=== PATIENT | male | born 1945 | race Caucasian/White ===

== ENCOUNTER → 2019-08-29 | Outpatient (CLI) | payer MEDICARE ==
[~2019-08-29] MED LIST: CONTRAST GIVEN. MC PRN; IOHEXOL 240 MG/ML 50ML VIAL. PO ONE
--- NOTE | 2019-08-29 13:20 | RAD ---
EXAM: Abdomen and pelvis CT without intravenous contrast. HISTORY: Weight loss and pain. TECHNIQUE: Computed tomographic images of the abdomen and pelvis were obtained without contrast. Multiplanar reformatting was performed. *One or more of the following individualized dose reduction techniques were utilized for this examination: 1. Automated exposure control. 2. Adjustment of the mA and/or kV according to patient size. 3. Use of iterative reconstruction technique. COMPARISON: None. FINDINGS: Evaluation of the lower thorax demonstrates emphysema. There is lingular atelectasis or scarring. The heart is normal in size. No hepatic lesion is seen. The culture surgically absent. The pancreas, spleen, adrenal glands and left kidney are unremarkable. There is a cyst within the lower pole of the right kidney measuring 2.2 cm. There is linear ossification within the upper mid zone of the right kidney which is likely vascular. There is no appendicitis. There is no bowel structure in. There is moderate colonic stool. There are few distal colonic diverticula. There is no evidence of diverticulitis. The bladder is unremarkable. There is calcified plaque involving the abdominal aorta. There is ectasia of the infrarenal abdominal aorta to a caliber of 2.7 cm. There is no suspicious osseous lesion. There is grade 1 anterolisthesis with pars defects at L5-S1. IMPRESSION: 1. No acute abdominal or pelvic finding. 2. Simple appearing right renal cyst and suspected renal vascular calcification. 3. Colonic diverticulosis. 4. Grade 1 anterolisthesis with pars defects at L5-S1. Electronically signed by: Lizet Cage MD (08/29/2019 1:18 PM) [facility]
== END | disposition home or self-care (01) ==
LOC: CT 10:32
PROVIDERS: ATTEND Family Medicine
DX: K57.30 Diverticulosis of large intestine without perforation or abscess without bleeding (principal); J43.9 Emphysema, unspecified; N28.1 Cyst of kidney, acquired; I70.8 Atherosclerosis of other arteries; M43.17 Spondylolisthesis, lumbosacral region
CPT/HCPCS: 74176

== ENCOUNTER → 2021-08-31 | Outpatient (CLI) | payer MEDICARE ==
--- NOTE | 2021-09-01 09:55 | RAD ---
EXAM: CT CHEST WITHOUT CONTRAST (LDCT LUNG CANCER SCREENING) 08/31/2021 HISTORY: 100 pack-year smoking history. TECHNIQUE: CT of the chest was performed without intravenous contrast using a low-dose lung screening protocol. Findings analysis is based on ACR Lung-RADS v1.1. One or more of the following individualized dose reduction techniques were utilized for this examinat ion: 1. Automated exposure control. 2. Adjustment of the mA and/or kV according to patient size. 3. Use of iterative reconstruction technique. COMPARISON: None. FINDINGS: Atherosclerotic calcification of the thoracic aorta and its branches is noted. The thoracic aorta is mildly tortuous but tapers normally. Extensive coronary artery calcifications are seen. The heart is normal in size. Calcified mediastinal and left hilar lymph nodes are seen. Small likely greg ctive hilar mediastinal lymph nodes are noted. No axillary lymphadenopathy is seen. Emphysematous changes are seen involving both lungs. Areas of scarring are seen involving the apices of both lungs. A 3 mm calcified granuloma is seen involving the anterior aspect of the left upper lob e. A 4 mm noncalcified nodule is seen involving the anterior aspect of the left upper lobe (image 161 o f series 2). Three additional small noncalcified nodules are seen involving the left upper lobe whic h measure 2 to 3 mm in size (images 83, 106 and 193). Areas of probable subsegmental atelectasis are seen involving the inferior medial right middle lobe a nd lingula. No additional pulmonary nodule is seen. No area of consolidation is noted. No pneumothora x or pleural effusion is seen. Images through the upper abdomen. Atherosclerotic calcification of the abdominal aorta is seen. Surgi miesha clips are seen within the gallbladder fossa. Degenerative changes are seen involving the thoracic spine. IMPRESSION/RECOMMENDATION: ACR Lung-RADS category: 3. Probably benign. Several small noncalcified nod ules are seen involving the left upper lobe. The largest measures 5 mm in greatest diameter. A repeat low-dose CT scan of the chest in 6 months is recommended to document their stability. Electronically signed by: Flako Castillo MD (09/01/2021 9:53 AM) [id number]
--- NOTE | 2021-09-01 10:25 | RAD ---
Exam: US DPLX ARTR EXTREM LOWER BILAT History: Claudication Comparison: None. Technique: Grayscale, color, and spectral Doppler ultrasound images of the lower extremity arteries. Findings: Peak systolic velocities (cm/s) and waveforms in the lower extremities: Right: Common femoral artery: 259, monophasic Profunda femoris artery: 194, monophasic Proximal superficial femoral artery: 60, monophasic Mid superficial femoral artery: 57, monophasic Distal superficial femoral artery: 46, now Popliteal artery: 84, monophasic Peroneal artery: Not visualized. Posterior tibial artery: 38 proximally, 36 distally, monophasic Dorsalis pedis artery: 15, monophasic Anterior tibial artery: 38, monophasic Left: Common femoral artery: 125, biphasic Profunda femoris artery: 46, biphasic Proximal superficial femoral artery: 122, biphasic Mid superficial femoral artery: 143, biphasic Distal superficial femoral artery: 104, biphasic Popliteal artery: 69, biphasic Peroneal artery: Not visualized Posterior tibial artery: 83 proximally and distally, biphasic Dorsalis pedis artery: 68, biphasic Anterior tibial artery: A 6, biphasic IMPRESSION: 1. Peripheral arterial disease in the right lower extremity with stenosis in the right common femoral artery and profunda femoris artery. Monophasic flow throughout the right lower extremity. 2. No evidence of stenosis in the left lower extremity arteries. Electronically signed by: Keisha Mancia MD (09/01/2021 10:23 AM) [id number]
== END ==
LOC: US 12:16
PROVIDERS: ATTEND Family Medicine
DX: I70.201 Unspecified atherosclerosis of native arteries of extremities, right leg (principal); R91.8 Other nonspecific abnormal finding of lung field; I70.0 Atherosclerosis of aorta; I25.10 Atherosclerotic heart disease of native coronary artery without angina pectoris; I89.8 Other specified noninfective disorders of lymphatic vessels and lymph nodes; J43.9 Emphysema, unspecified; J84.10 Pulmonary fibrosis, unspecified; J98.11 Atelectasis; M47.814 Spondylosis without myelopathy or radiculopathy, thoracic region; Z98.890 Other specified postprocedural states; F17.210 Nicotine dependence, cigarettes, uncomplicated
CPT/HCPCS: 71271; 93925

== ENCOUNTER 2021-09-06 07:49 | Outpatient (CLI) | payer MEDICARE ==
[2021-09-06] VITALS (10 sets, daily range): BP systolic 116–142; BP diastolic 65–82
[~2021-09-06] VITALS: Ht 180.3 cm; Wt 70.0 kg
[2021-09-06 08:30] LABS: BASO # 0.1 x10^3/uL (0.0-0.2); BASO % 1 % (0-3); EOS # 0.6 x10^3/uL (0.0-0.7); EOS % 10 % (0-3); HEMATOCRIT 46.2 % (39.0-53.0); LYMPH # 0.9 x10^3/uL (1.0-4.8); LYMPH % 15 % (24-48); MEAN CORPUSCULAR HEMOGLOBIN 28 pg (25-35); MEAN CORPUSCULAR HGB CONC 32 g/dL (31-37); MEAN CORPUSCULAR VOLUME 85 fL (79-100); MONO # 0.8 x10^3/uL (0.0-1.1); MONO % 13 % (0-9); NEUT # 3.8 x10^3/uL (1.8-7.7); NEUT % 61 % (31-73); PLATELET COUNT 225 x10^3/uL (140-400); RED BLOOD COUNT 5.44 x10^6/uL (4.30-5.70); RED CELL DISTRIBUTION WIDTH 15.9 % (11.5-14.5); WHITE BLOOD COUNT 6.3 x10^3/uL (4.0-11.0)
[2021-09-06 08:38] LABS: CALCIUM 8.9 mg/dL (8.5-10.1); CREATININE 0.8 mg/dL (0.7-1.3); POTASSIUM 4.4 mmol/L (3.5-5.1)
[2021-09-06 08:39] LABS: PROTHROMBIN TIME PATIENT 12.3 SEC (11.7-14.0)
[2021-09-06] MEDS ORDERED: METF500T16 PO (09:23)
[2021-09-06] MEDS ORDERED: IODIXANOL 320 MG/ML 100 ML VIAL. ONE (09:55)
[2021-09-06] MEDS ORDERED: HEPARIN for ARTERIAL LINE 1,500 ML ONE (09:56)
[2021-09-06] MEDS ORDERED: LIDOCAINE WITH 8.4% SOD BICARB 3 ML DISP.SYRIN. ONE (09:56)
[2021-09-06] MEDS ORDERED: MIDAZOLAM HCL/PF 2 MG/2 ML VIAL. ONE (10:13)
[2021-09-06] MEDS ORDERED: HEPARIN for IV BOLUS 10,000 UNIT/10 ML VIAL. ONE ×2 (10:13→11:07)
[2021-09-06] MEDS ORDERED: fentaNYL PF VIAL 100 MCG/2 ML VIAL ONE ×3 (10:13→12:47)
[2021-09-06] MEDS ORDERED: NITROGLYCERIN 4 MG/20 ML SYRINGE for CATH LAB. ONE ×2 (10:51→11:00)
[2021-09-06] MEDS ORDERED: NITROGLYCERIN 200 MCG/2 ML SYRINGE FOR CATH/VASC LAB. ONE (11:11)
[2021-09-06] MEDS ORDERED: fentaNYL PF VIAL 100 MCG/2 ML VIAL IV ONE (11:30)
[2021-09-06] MEDS ORDERED: HEPARIN for IV BOLUS 10,000 UNIT/10 ML VIAL. IV ONE (11:30)
[2021-09-06] MEDS ORDERED: MIDAZOLAM HCL/PF 2 MG/2 ML VIAL. IV ONE (11:30)
[2021-09-06] MEDS ORDERED: LIDOCAINE WITH 8.4% SOD BICARB 3 ML DISP.SYRIN. IJ ONE (11:30)
[2021-09-06] MEDS ORDERED: NITROGLYCERIN 200 MCG/2 ML SYRINGE FOR CATH/VASC LAB. IART ONE (11:30)
[2021-09-06] MEDS ORDERED: IODIXANOL 320 MG/ML 100 ML VIAL. IART ONE (11:30)
[2021-09-06] MEDS ORDERED: CLOPIDOGREL BISULFATE 75 MG TABLET ONE (14:45)
[2021-09-06] MEDS ORDERED: ASPIRIN CHEWABLE 81 MG TABLET. PO ONE (15:00)
[2021-09-06] MEDS ORDERED: CLOPIDOGREL BISULFATE 75 MG TABLET PO ONE (15:00)
[2021-09-06] MEDS ORDERED: ONDANSETRON PF 4 MG/2 ML VIAL. IVP PRN (15:15)
--- NOTE | 2021-09-06 15:19 | NUR ---
Plavix 75mg daily, Aspirin 81 mg daily called in to [facility] by RN as requested by RN. Patient's grandson notified of patient's status, RX needing to be picked up. States he will be staying with him this evening. Addendum: 09/06/21 at 1522 by CORY OBREGON RN requested by patient.
--- NOTE | 2021-09-06 16:01 | NUR ---
pt ambulated and tolerated PO. PIV dc'd. discharge instructions reviewed with patient. Pt home with family
[2021-09-07] MEDS ORDERED: CLOPIDOGREL BISULFATE 75 MG TABLET PO SCH (08:00)
--- NOTE | 2021-09-07 08:58 | RAD ---
Site ID: [id number] EXAMINATION: Ultrasound-guided puncture of the left MANAGER TALENT MANAGEMENT (CPT 34475) Catheter placement right MANAGER TALENT MANAGEMENT, ( [id number]-Duy/pop Aortogram (CPT 71529) and Pelvic angiogram-bilateral iliac-and right lower extremity run off ([id number] unilateral [id number] -bilate ral) Left external iliac artery angioplasty (07196) Femoropopliteal atherectomy and stent placement (04034) Moderate sedation (CPT fill) INDICATION: Patient complains of bilateral leg claudication preventing him from being fully active mo re on the right side. The patient however is capable of the walking short distances. No ulcers or res t pain. Flouroscopy-Radiation exposure: Kerma Air Product (in mGycm2): 202 Contrast: 90 mL Isovue-300. SEDATION: Under physician supervision, Versed and fentanyl were administered intravenously for moder ate sedation. Pulse oximetry, heart rate, and BP were continuously monitored by a dedicated qualifie d nurse. The physician spent 159 minutes of [id number] sedation time with the patient. Current history and physical and other medical records are reviewed prior to the procedure. CONSENT: Informed consent was obtained. The risks, benefits, potential complications and alternatives were reviewed and all questions answered. Estimated blood loss: 30 ml PROCEDURE: After maximal sterile barrier technique preparation and draping, 1% lidocaine was utilized for local anesthesia. Ultrasound demonstrates patent left MANAGER TALENT MANAGEMENT. This is deemed suitable for access and a ultrasound-guided puncture was performed utilizing a micropuncture kit. Live guidance is used and ultrasound image of good needle location is saved. A 6-Palestinian sheath is introduced. Subsequently a 5-Palestinian contra flush catheter is introduced advanced over a wire into the abdominal a savannah and the catheter is positioned at T12 level. DSA aortogram is performed. Then the catheter was repositioned to the distal abdominal aorta at the L4 level and pelvic angiogram in BARRERA and DUBOIS positi ons was performed. Subsequently the catheter was advanced over a wire into the right common femoral artery and a DSA l ower extremity runoff was performed. Please note that for evaluation of the catheter infrapopliteal vessels on the right side is selective injection with catheter placement in the right popliteal artery is a performed after crossing the oc clusion to obtain an diagnostic angiogram as the nonselective injection from the right common femoral artery position was nondiagnostic. Angiogram findings: * Abdominal aorta demonstrates no significant stenosis. There is however an aneurysm of the lower ab dominal aorta measuring approximately 4 cm. This appears to be larger compared to CT scan on the Dece mber 2018. * Pelvic angiogram: RIGHT: Common iliac: no significant stenosis Internal iliac: High-grade stenosis of the origin External iliac: no significant stenosis LEFT: Common iliac: no significant stenosis Internal iliac: no significant stenosis External iliac: 70 percent focal stenosis proximally * Left lower extremity: MANAGER TALENT MANAGEMENT: Calcified plaque with the 80 percent stenosis * Right lower extremity Angiogram: MANAGER TALENT MANAGEMENT: Large calcified plaque with 80 percent stenosis Profunda: no significant stenosis SFA: 7 cm segment of the chronic occlusion distally Popliteal: no significant stenosis AT: Proximal focal 80 percent stenosis Peroneal: no significant stenosis PT: no significant stenosis Intervention: The 6-Palestinian access sheath was exchanged over a wire with a long 6-Palestinian destination sheath with the tip positioned in the right external iliac artery. Subsequently successful careful crossing of the stenosis in the right common femoral artery was performed. Subsequently the catheter is placed in the mid SFA and the after a few maneuvers, successful crossing of the complete occlusion of the distal right SFA was performed. Injection distally demonstrated the true lumen position. Then catheter is placed in the popliteal artery and diagnostic angiogram of the infrapopliteal arteri es of the right side was performed to obtain the accurate assessment of the these vessels which demon strates focal significant stenosis in the anterior tibial artery. The peroneal and posterior tibial a rteries however appears patent. Subsequently CSI atherectomy was performed at the right common femoral artery. This is performed gent ly in order to minimize embolization. Subsequently 5 and 6 mm balloon angioplasty is performed with d rug coated balloon. Subsequently, angioplasty is performed at the distal right SFA lesion and follow-up angiogram demonst rate the remaining significant stenosis. This is followed by a placement of a 5.5 mm Supera stent whi ch is deployed successfully with the follow-up angiogram demonstrating good results. The subsequently attention is a switched into the left external iliac, artery stenosis. The sheath is pulled into the left external iliac artery and the 6 mm balloon angioplasty of the proximal left ext ernal iliac artery stenosis was performed with follow-up angiogram demonstrating good results. Following that the catheters and wires were withdrawn and the left MANAGER TALENT MANAGEMENT arteriotomy was closed utiliz ing Perclose closure device successfully achieving hemostasis. The patient tolerated the procedure well with no immediate complications. Impression: 1. Distal abdominal aortic aneurysm measuring approximately 4 cm in size. For more accurate sizing o f the aorta, a CTA follow-up of the abdomen and pelvis is recommended. 2. Complete occlusion in the distal right SFA successfully recanalized, requiring stent placement. 3. High-grade stenosis with calcified plaque at the right common femoral artery with significant impr ovement in the flow and patency after atherectomy and angioplasty. There is remaining 30 percent sten osis. 4. Focal 70 percent stenosis of the proximal left external iliac artery with significant improvement after angioplasty. 5. The patient is started on daily aspirin and Plavix. Electronically signed by: Remi Koenig MD (09/07/2021 8:56 AM) [id number]
--- NOTE | 2021-09-07 08:58 | RAD ---
Site ID: [id number] EXAMINATION: Ultrasound-guided puncture of the left RAFTSMAN (CPT 79688) Catheter placement right RAFTSMAN, ( [id number]-Gku/pop Aortogram (CPT 49090) and Pelvic angiogram-bilateral iliac-and right lower extremity run off (99539 unilateral 56627 -bilate ral) Left external iliac artery angioplasty (49681) Femoropopliteal atherectomy and stent placement (88938) Moderate sedation (CPT fill) INDICATION: Patient complains of bilateral leg claudication preventing him from being fully active mo re on the right side. The patient however is capable of the walking short distances. No ulcers or res t pain. Flouroscopy-Radiation exposure: Kerma Air Product (in mGycm2): 202 Contrast: 90 mL Isovue-300. SEDATION: Under physician supervision, Versed and fentanyl were administered intravenously for moder ate sedation. Pulse oximetry, heart rate, and BP were continuously monitored by a dedicated qualifie d nurse. The physician spent 159 minutes of jmuk-nt-zcys sedation time with the patient. Current history and physical and other medical records are reviewed prior to the procedure. CONSENT: Informed consent was obtained. The risks, benefits, potential complications and alternatives were reviewed and all questions answered. Estimated blood loss: 30 ml PROCEDURE: After maximal sterile barrier technique preparation and draping, 1% lidocaine was utilized for local anesthesia. Ultrasound demonstrates patent left RAFTSMAN. This is deemed suitable for access and a ultrasound-guided puncture was performed utilizing a micropuncture kit. Live guidance is used and ultrasound image of good needle location is saved. A 6-Senegalese sheath is introduced. Subsequently a 5-Senegalese contra flush catheter is introduced advanced over a wire into the abdominal a savannah and the catheter is positioned at T12 level. DSA aortogram is performed. Then the catheter was repositioned to the distal abdominal aorta at the L4 level and pelvic angiogram in BARRERA and DUBOIS positi ons was performed. Subsequently the catheter was advanced over a wire into the right common femoral artery and a DSA l ower extremity runoff was performed. Please note that for evaluation of the catheter infrapopliteal vessels on the right side is selective injection with catheter placement in the right popliteal artery is a performed after crossing the oc clusion to obtain an diagnostic angiogram as the nonselective injection from the right common femoral artery position was nondiagnostic. Angiogram findings: * Abdominal aorta demonstrates no significant stenosis. There is however an aneurysm of the lower ab dominal aorta measuring approximately 4 cm. This appears to be larger compared to CT scan on the Dece mber 2018. * Pelvic angiogram: RIGHT: Common iliac: no significant stenosis Internal iliac: High-grade stenosis of the origin External iliac: no significant stenosis LEFT: Common iliac: no significant stenosis Internal iliac: no significant stenosis External iliac: 70 percent focal stenosis proximally * Left lower extremity: RAFTSMAN: Calcified plaque with the 80 percent stenosis * Right lower extremity Angiogram: RAFTSMAN: Large calcified plaque with 80 percent stenosis Profunda: no significant stenosis SFA: 7 cm segment of the chronic occlusion distally Popliteal: no significant stenosis AT: Proximal focal 80 percent stenosis Peroneal: no significant stenosis PT: no significant stenosis Intervention: The 6-Senegalese access sheath was exchanged over a wire with a long 6-Senegalese destination sheath with the tip positioned in the right external iliac artery. Subsequently successful careful crossing of the stenosis in the right common femoral artery was performed. Subsequently the catheter is placed in the mid SFA and the after a few maneuvers, successful crossing of the complete occlusion of the distal right SFA was performed. Injection distally demonstrated the true lumen position. Then catheter is placed in the popliteal artery and diagnostic angiogram of the infrapopliteal arteri es of the right side was performed to obtain the accurate assessment of the these vessels which demon strates focal significant stenosis in the anterior tibial artery. The peroneal and posterior tibial a rteries however appears patent. Subsequently CSI atherectomy was performed at the right common femoral artery. This is performed gent ly in order to minimize embolization. Subsequently 5 and 6 mm balloon angioplasty is performed with d rug coated balloon. Subsequently, angioplasty is performed at the distal right SFA lesion and follow-up angiogram demonst rate the remaining significant stenosis. This is followed by a placement of a 5.5 mm Supera stent whi ch is deployed successfully with the follow-up angiogram demonstrating good results. The subsequently attention is a switched into the left external iliac, artery stenosis. The sheath is pulled into the left external iliac artery and the 6 mm balloon angioplasty of the proximal left ext ernal iliac artery stenosis was performed with follow-up angiogram demonstrating good results. Following that the catheters and wires were withdrawn and the left RAFTSMAN arteriotomy was closed utiliz ing Perclose closure device successfully achieving hemostasis. The patient tolerated the procedure well with no immediate complications. Impression: 1. Distal abdominal aortic aneurysm measuring approximately 4 cm in size. For more accurate sizing o f the aorta, a CTA follow-up of the abdomen and pelvis is recommended. 2. Complete occlusion in the distal right SFA successfully recanalized, requiring stent placement. 3. High-grade stenosis with calcified plaque at the right common femoral artery with significant impr ovement in the flow and patency after atherectomy and angioplasty. There is remaining 30 percent sten osis. 4. Focal 70 percent stenosis of the proximal left external iliac artery with significant improvement after angioplasty. 5. The patient is started on daily aspirin and Plavix. Electronically signed by: Remi Koenig MD (09/07/2021 8:56 AM) [id number]
--- NOTE | 2021-09-07 08:58 | RAD ---
Site ID: [id number] EXAMINATION: Ultrasound-guided puncture of the left SUPERVISOR WATER SOFTENER SERVICE (CPT 35920) Catheter placement right SUPERVISOR WATER SOFTENER SERVICE, ( [id number]/pop Aortogram (CPT 62430) and Pelvic angiogram-bilateral iliac-and right lower extremity run off ([id number] unilateral [id number] -bilate ral) Left external iliac artery angioplasty (43305) Femoropopliteal atherectomy and stent placement (11460) Moderate sedation (CPT fill) INDICATION: Patient complains of bilateral leg claudication preventing him from being fully active mo re on the right side. The patient however is capable of the walking short distances. No ulcers or res t pain. Flouroscopy-Radiation exposure: Kerma Air Product (in mGycm2): 202 Contrast: 90 mL Isovue-300. SEDATION: Under physician supervision, Versed and fentanyl were administered intravenously for moder ate sedation. Pulse oximetry, heart rate, and BP were continuously monitored by a dedicated qualifie d nurse. The physician spent 159 minutes of [id number] sedation time with the patient. Current history and physical and other medical records are reviewed prior to the procedure. CONSENT: Informed consent was obtained. The risks, benefits, potential complications and alternatives were reviewed and all questions answered. Estimated blood loss: 30 ml PROCEDURE: After maximal sterile barrier technique preparation and draping, 1% lidocaine was utilized for local anesthesia. Ultrasound demonstrates patent left SUPERVISOR WATER SOFTENER SERVICE. This is deemed suitable for access and a ultrasound-guided puncture was performed utilizing a micropuncture kit. Live guidance is used and ultrasound image of good needle location is saved. A 6-South African sheath is introduced. Subsequently a 5-South African contra flush catheter is introduced advanced over a wire into the abdominal a savannah and the catheter is positioned at T12 level. DSA aortogram is performed. Then the catheter was repositioned to the distal abdominal aorta at the L4 level and pelvic angiogram in BARRERA and DUBOIS positi ons was performed. Subsequently the catheter was advanced over a wire into the right common femoral artery and a DSA l ower extremity runoff was performed. Please note that for evaluation of the catheter infrapopliteal vessels on the right side is selective injection with catheter placement in the right popliteal artery is a performed after crossing the oc clusion to obtain an diagnostic angiogram as the nonselective injection from the right common femoral artery position was nondiagnostic. Angiogram findings: * Abdominal aorta demonstrates no significant stenosis. There is however an aneurysm of the lower ab dominal aorta measuring approximately 4 cm. This appears to be larger compared to CT scan on the Dece mber 2018. * Pelvic angiogram: RIGHT: Common iliac: no significant stenosis Internal iliac: High-grade stenosis of the origin External iliac: no significant stenosis LEFT: Common iliac: no significant stenosis Internal iliac: no significant stenosis External iliac: 70 percent focal stenosis proximally * Left lower extremity: SUPERVISOR WATER SOFTENER SERVICE: Calcified plaque with the 80 percent stenosis * Right lower extremity Angiogram: SUPERVISOR WATER SOFTENER SERVICE: Large calcified plaque with 80 percent stenosis Profunda: no significant stenosis SFA: 7 cm segment of the chronic occlusion distally Popliteal: no significant stenosis AT: Proximal focal 80 percent stenosis Peroneal: no significant stenosis PT: no significant stenosis Intervention: The 6-South African access sheath was exchanged over a wire with a long 6-South African destination sheath with the tip positioned in the right external iliac artery. Subsequently successful careful crossing of the stenosis in the right common femoral artery was performed. Subsequently the catheter is placed in the mid SFA and the after a few maneuvers, successful crossing of the complete occlusion of the distal right SFA was performed. Injection distally demonstrated the true lumen position. Then catheter is placed in the popliteal artery and diagnostic angiogram of the infrapopliteal arteri es of the right side was performed to obtain the accurate assessment of the these vessels which demon strates focal significant stenosis in the anterior tibial artery. The peroneal and posterior tibial a rteries however appears patent. Subsequently CSI atherectomy was performed at the right common femoral artery. This is performed gent ly in order to minimize embolization. Subsequently 5 and 6 mm balloon angioplasty is performed with d rug coated balloon. Subsequently, angioplasty is performed at the distal right SFA lesion and follow-up angiogram demonst rate the remaining significant stenosis. This is followed by a placement of a 5.5 mm Supera stent whi ch is deployed successfully with the follow-up angiogram demonstrating good results. The subsequently attention is a switched into the left external iliac, artery stenosis. The sheath is pulled into the left external iliac artery and the 6 mm balloon angioplasty of the proximal left ext ernal iliac artery stenosis was performed with follow-up angiogram demonstrating good results. Following that the catheters and wires were withdrawn and the left SUPERVISOR WATER SOFTENER SERVICE arteriotomy was closed utiliz ing Perclose closure device successfully achieving hemostasis. The patient tolerated the procedure well with no immediate complications. Impression: 1. Distal abdominal aortic aneurysm measuring approximately 4 cm in size. For more accurate sizing o f the aorta, a CTA follow-up of the abdomen and pelvis is recommended. 2. Complete occlusion in the distal right SFA successfully recanalized, requiring stent placement. 3. High-grade stenosis with calcified plaque at the right common femoral artery with significant impr ovement in the flow and patency after atherectomy and angioplasty. There is remaining 30 percent sten osis. 4. Focal 70 percent stenosis of the proximal left external iliac artery with significant improvement after angioplasty. 5. The patient is started on daily aspirin and Plavix. Electronically signed by: Remi Koenig MD (09/07/2021 8:56 AM) [id number]
--- NOTE | 2021-09-07 08:58 | RAD ---
Site ID: [id number] EXAMINATION: Ultrasound-guided puncture of the left PLASMA PROCESSING TECHNICIAN (CPT 25858) Catheter placement right PLASMA PROCESSING TECHNICIAN, ( [id number]/pop Aortogram (CPT 27323) and Pelvic angiogram-bilateral iliac-and right lower extremity run off (12126 unilateral [id number] -bilate ral) Left external iliac artery angioplasty (57928) Femoropopliteal atherectomy and stent placement (97420) Moderate sedation (CPT fill) INDICATION: Patient complains of bilateral leg claudication preventing him from being fully active mo re on the right side. The patient however is capable of the walking short distances. No ulcers or res t pain. Flouroscopy-Radiation exposure: Kerma Air Product (in mGycm2): 202 Contrast: 90 mL Isovue-300. SEDATION: Under physician supervision, Versed and fentanyl were administered intravenously for moder ate sedation. Pulse oximetry, heart rate, and BP were continuously monitored by a dedicated qualifie d nurse. The physician spent 159 minutes of vssz-pl-wozi sedation time with the patient. Current history and physical and other medical records are reviewed prior to the procedure. CONSENT: Informed consent was obtained. The risks, benefits, potential complications and alternatives were reviewed and all questions answered. Estimated blood loss: 30 ml PROCEDURE: After maximal sterile barrier technique preparation and draping, 1% lidocaine was utilized for local anesthesia. Ultrasound demonstrates patent left PLASMA PROCESSING TECHNICIAN. This is deemed suitable for access and a ultrasound-guided puncture was performed utilizing a micropuncture kit. Live guidance is used and ultrasound image of good needle location is saved. A 6-Samoan sheath is introduced. Subsequently a 5-Samoan contra flush catheter is introduced advanced over a wire into the abdominal a [place] and the catheter is positioned at T12 level. DSA aortogram is performed. Then the catheter was repositioned to the distal abdominal aorta at the L4 level and pelvic angiogram in BARRERA and DUBOIS positi ons was performed. Subsequently the catheter was advanced over a wire into the right common femoral artery and a DSA l ower extremity runoff was performed. Please note that for evaluation of the catheter infrapopliteal vessels on the right side is selective injection with catheter placement in the right popliteal artery is a performed after crossing the oc clusion to obtain an diagnostic angiogram as the nonselective injection from the right common femoral artery position was nondiagnostic. Angiogram findings: * Abdominal aorta demonstrates no significant stenosis. There is however an aneurysm of the lower ab dominal aorta measuring approximately 4 cm. This appears to be larger compared to CT scan on the Dece mber 2018. * Pelvic angiogram: RIGHT: Common iliac: no significant stenosis Internal iliac: High-grade stenosis of the origin External iliac: no significant stenosis LEFT: Common iliac: no significant stenosis Internal iliac: no significant stenosis External iliac: 70 percent focal stenosis proximally * Left lower extremity: PLASMA PROCESSING TECHNICIAN: Calcified plaque with the 80 percent stenosis * Right lower extremity Angiogram: PLASMA PROCESSING TECHNICIAN: Large calcified plaque with 80 percent stenosis Profunda: no significant stenosis SFA: 7 cm segment of the chronic occlusion distally Popliteal: no significant stenosis AT: Proximal focal 80 percent stenosis Peroneal: no significant stenosis PT: no significant stenosis Intervention: The 6-Samoan access sheath was exchanged over a wire with a long 6-Samoan destination sheath with the tip positioned in the right external iliac artery. Subsequently successful careful crossing of the stenosis in the right common femoral artery was performed. Subsequently the catheter is placed in the mid SFA and the after a few maneuvers, successful crossing of the complete occlusion of the distal right SFA was performed. Injection distally demonstrated the true lumen position. Then catheter is placed in the popliteal artery and diagnostic angiogram of the infrapopliteal arteri es of the right side was performed to obtain the accurate assessment of the these vessels which demon strates focal significant stenosis in the anterior tibial artery. The peroneal and posterior tibial a rteries however appears patent. Subsequently CSI atherectomy was performed at the right common femoral artery. This is performed gent ly in order to minimize embolization. Subsequently 5 and 6 mm balloon angioplasty is performed with d rug coated balloon. Subsequently, angioplasty is performed at the distal right SFA lesion and follow-up angiogram demonst rate the remaining significant stenosis. This is followed by a placement of a 5.5 mm Supera stent whi ch is deployed successfully with the follow-up angiogram demonstrating good results. The subsequently attention is a switched into the left external iliac, artery stenosis. The sheath is pulled into the left external iliac artery and the 6 mm balloon angioplasty of the proximal left ext ernal iliac artery stenosis was performed with follow-up angiogram demonstrating good results. Following that the catheters and wires were withdrawn and the left PLASMA PROCESSING TECHNICIAN arteriotomy was closed utiliz ing Perclose closure device successfully achieving hemostasis. The patient tolerated the procedure well with no immediate complications. Impression: 1. Distal abdominal aortic aneurysm measuring approximately 4 cm in size. For more accurate sizing o f the aorta, a CTA follow-up of the abdomen and pelvis is recommended. 2. Complete occlusion in the distal right SFA successfully recanalized, requiring stent placement. 3. High-grade stenosis with calcified plaque at the right common femoral artery with significant impr ovement in the flow and patency after atherectomy and angioplasty. There is remaining 30 percent sten osis. 4. Focal 70 percent stenosis of the proximal left external iliac artery with significant improvement after angioplasty. 5. The patient is started on daily aspirin and Plavix. Electronically signed by: Remi Koenig MD (09/07/2021 8:56 AM) [id number]
--- NOTE | 2021-09-07 08:58 | RAD ---
Site ID: [id number] EXAMINATION: Ultrasound-guided puncture of the left PRINTING SERVICES COORDINATOR (CPT 77719) Catheter placement right PRINTING SERVICES COORDINATOR, ( [id number]-Zka/pop Aortogram (CPT 75986) and Pelvic angiogram-bilateral iliac-and right lower extremity run off (54296 unilateral [id number] -bilate ral) Left external iliac artery angioplasty (97710) Femoropopliteal atherectomy and stent placement (49766) Moderate sedation (CPT fill) INDICATION: Patient complains of bilateral leg claudication preventing him from being fully active mo re on the right side. The patient however is capable of the walking short distances. No ulcers or res t pain. Flouroscopy-Radiation exposure: Kerma Air Product (in mGycm2): 202 Contrast: 90 mL Isovue-300. SEDATION: Under physician supervision, Versed and fentanyl were administered intravenously for moder ate sedation. Pulse oximetry, heart rate, and BP were continuously monitored by a dedicated qualifie d nurse. The physician spent 159 minutes of xnhr-pj-xidf sedation time with the patient. Current history and physical and other medical records are reviewed prior to the procedure. CONSENT: Informed consent was obtained. The risks, benefits, potential complications and alternatives were reviewed and all questions answered. Estimated blood loss: 30 ml PROCEDURE: After maximal sterile barrier technique preparation and draping, 1% lidocaine was utilized for local anesthesia. Ultrasound demonstrates patent left PRINTING SERVICES COORDINATOR. This is deemed suitable for access and a ultrasound-guided puncture was performed utilizing a micropuncture kit. Live guidance is used and ultrasound image of good needle location is saved. A 6-Peruvian sheath is introduced. Subsequently a 5-Peruvian contra flush catheter is introduced advanced over a wire into the abdominal a [place] and the catheter is positioned at T12 level. DSA aortogram is performed. Then the catheter was repositioned to the distal abdominal aorta at the L4 level and pelvic angiogram in BARRERA and DUBOIS positi ons was performed. Subsequently the catheter was advanced over a wire into the right common femoral artery and a DSA l ower extremity runoff was performed. Please note that for evaluation of the catheter infrapopliteal vessels on the right side is selective injection with catheter placement in the right popliteal artery is a performed after crossing the oc clusion to obtain an diagnostic angiogram as the nonselective injection from the right common femoral artery position was nondiagnostic. Angiogram findings: * Abdominal aorta demonstrates no significant stenosis. There is however an aneurysm of the lower ab dominal aorta measuring approximately 4 cm. This appears to be larger compared to CT scan on the Dece mber 2018. * Pelvic angiogram: RIGHT: Common iliac: no significant stenosis Internal iliac: High-grade stenosis of the origin External iliac: no significant stenosis LEFT: Common iliac: no significant stenosis Internal iliac: no significant stenosis External iliac: 70 percent focal stenosis proximally * Left lower extremity: PRINTING SERVICES COORDINATOR: Calcified plaque with the 80 percent stenosis * Right lower extremity Angiogram: PRINTING SERVICES COORDINATOR: Large calcified plaque with 80 percent stenosis Profunda: no significant stenosis SFA: 7 cm segment of the chronic occlusion distally Popliteal: no significant stenosis AT: Proximal focal 80 percent stenosis Peroneal: no significant stenosis PT: no significant stenosis Intervention: The 6-Peruvian access sheath was exchanged over a wire with a long 6-Peruvian destination sheath with the tip positioned in the right external iliac artery. Subsequently successful careful crossing of the stenosis in the right common femoral artery was performed. Subsequently the catheter is placed in the mid SFA and the after a few maneuvers, successful crossing of the complete occlusion of the distal right SFA was performed. Injection distally demonstrated the true lumen position. Then catheter is placed in the popliteal artery and diagnostic angiogram of the infrapopliteal arteri es of the right side was performed to obtain the accurate assessment of the these vessels which demon strates focal significant stenosis in the anterior tibial artery. The peroneal and posterior tibial a rteries however appears patent. Subsequently CSI atherectomy was performed at the right common femoral artery. This is performed gent ly in order to minimize embolization. Subsequently 5 and 6 mm balloon angioplasty is performed with d rug coated balloon. Subsequently, angioplasty is performed at the distal right SFA lesion and follow-up angiogram demonst rate the remaining significant stenosis. This is followed by a placement of a 5.5 mm Supera stent whi ch is deployed successfully with the follow-up angiogram demonstrating good results. The subsequently attention is a switched into the left external iliac, artery stenosis. The sheath is pulled into the left external iliac artery and the 6 mm balloon angioplasty of the proximal left ext ernal iliac artery stenosis was performed with follow-up angiogram demonstrating good results. Following that the catheters and wires were withdrawn and the left PRINTING SERVICES COORDINATOR arteriotomy was closed utiliz ing Perclose closure device successfully achieving hemostasis. The patient tolerated the procedure well with no immediate complications. Impression: 1. Distal abdominal aortic aneurysm measuring approximately 4 cm in size. For more accurate sizing o f the aorta, a CTA follow-up of the abdomen and pelvis is recommended. 2. Complete occlusion in the distal right SFA successfully recanalized, requiring stent placement. 3. High-grade stenosis with calcified plaque at the right common femoral artery with significant impr ovement in the flow and patency after atherectomy and angioplasty. There is remaining 30 percent sten osis. 4. Focal 70 percent stenosis of the proximal left external iliac artery with significant improvement after angioplasty. 5. The patient is started on daily aspirin and Plavix. Electronically signed by: Remi Koenig MD (09/07/2021 8:56 AM) [id number]
== END 2021-09-06 16:02 | disposition home or self-care (01) ==
LOC: INTRAD 07:49
PROVIDERS: ATTEND Family Medicine
DX: I73.9 Peripheral vascular disease, unspecified (principal); E11.9 Type 2 diabetes mellitus without complications; E78.00 Pure hypercholesterolemia, unspecified; M19.90 Unspecified osteoarthritis, unspecified site; F17.210 Nicotine dependence, cigarettes, uncomplicated; Z79.84 Long term (current) use of oral hypoglycemic drugs; Z79.899 Other long term (current) drug therapy; Z90.49 Acquired absence of other specified parts of digestive tract; Z98.890 Other specified postprocedural states
CPT/HCPCS: 36415; 37220; 75625; 75710; 76937; 80048; 85025; 85347; 85610; 99152; 99153; C1713; C1724; C1725; C1760; C1769; C1876; C1892; C1894; C2623; J1644; J2250; J3010; J3490; J7030; Q9967; G0269